=== PATIENT | female | born 1970 | race Caucasian/White ===

== ENCOUNTER 2018-10-18 14:50 | Outpatient (REF) | payer BC, SELFPAY ==
[2018-10-18 19:19] LABS: HCT 42.3 % (36.0-46.0); HGB 14.1 g/dL (12.0-15.5); Mean Corp. HGB Concentration 33.3 g/dL (32.0-36.0); Mean Corpuscular Hemoglobin 29.9 pg (27.0-33.0); Mean Corpuscular Volume 89.8 fL (80-95); Mean Platelet Volume 9.5 fL (8.0-11.0); Platelet Count 279 x1000/uL (130-400); RBC 4.71 m/cumm (4.00-5.20); RBC Distribution Width 13.4 % (11.7-14.6); White Blood Cell Count 4.98 k/cumm (4.4-10.8)
[2018-10-18 19:38] LABS: BUN 17 mg/dL (7-18); CREATININE 0.98 mg/dL (0.55-1.02); Calcium 9.6 mg/dL (8.5-10.1); Chloride 105 mmol/L (98-107); Cholesterol 214 mg/dL (50-200); Glucose 80 mg/dL (70-100); HDL Cholesterol 63 mg/dL (40-60); LDL CHOLESTEROL 128 mg/dL (<100); Sodium 143 mmol/L (136-145); Triglyceride 136 mg/dL (30-150)
[2018-10-18 20:31] LABS: ESR 18 MM/HR (0-20)
[2018-10-19 16:11] LABS: CRP, High Sensitivity 3.49 mg/L
== END 2018-10-18 15:10 ==
LOC: NCHCN 14:50
PROVIDERS: PCP Internal Medicine; Visit Provider Internal Medicine
DX: M06.9 Rheumatoid arthritis, unspecified (principal); F43.21 Adjustment disorder with depressed mood; E66.9 Obesity, unspecified
CPT/HCPCS: 80048; 80061; 83721; 85027; 85652; 86141; 84443

== ENCOUNTER 2019-01-22 10:49 | Outpatient (REF) | payer BC, SELFPAY ==
[2019-01-22 20:26] LABS: ESR 10 MM/HR (0-20)
[2019-01-23 16:34] LABS: CRP, High Sensitivity 4.64 mg/L
[2019-01-24 08:36] LABS: Rheumatoid Factor 31 IU/mL (<12.5)
[2019-01-24 11:08] LABS: Lyme Ab w Rflx to Lyme Confirm Negative
== END 2019-01-22 11:09 ==
LOC: NCHCN 10:49
PROVIDERS: PCP Internal Medicine; Visit Provider Nurse Practitioner Family
DX: M06.9 Rheumatoid arthritis, unspecified (principal)
CPT/HCPCS: 85652; 86141; 86431; 86618

== ENCOUNTER 2019-03-25 10:14 | Outpatient (REF) | payer BC, SELFPAY ==
[2019-03-25 19:16] LABS: Anion Gap 13.9 mmol/L (3-11); BUN 12 mg/dL (7-18); CO2 23.1 mmol/L (21.0-32.0); CREATININE 0.75 mg/dL (0.55-1.02); Calcium 9.2 mg/dL (8.5-10.1); Chloride 106 mmol/L (98-107); Glucose 117 mg/dL (70-100); Potassium 3.9 mmol/L (3.5-5.1); Sodium 143 mmol/L (136-145)
== END 2019-03-25 10:34 ==
LOC: NCHCN 10:14
PROVIDERS: PCP Internal Medicine; Visit Provider Nurse Practitioner Family
DX: E27.49 Other adrenocortical insufficiency (principal); M79.7 Fibromyalgia
CPT/HCPCS: 80048

== ENCOUNTER 2019-03-26 13:26 | Outpatient (REF) | payer BC, SELFPAY ==
[2019-03-26 19:04] LABS: Troponin I < 0.05 ng/mL (0.00-0.06)
== END 2019-03-26 13:46 ==
LOC: NCHCN 13:26
PROVIDERS: PCP Internal Medicine; Visit Provider Nurse Practitioner Family
DX: R07.89 Other chest pain (principal)
CPT/HCPCS: 84484

== ENCOUNTER 2020-06-08 13:58 | Outpatient (REF) | payer BC, SELFPAY ==
[2020-06-08 19:55] LABS: Hemoglobin A1C 5.4 % (<5.7)
[2020-06-08 20:08] LABS: Calculated LDL 143 mg/dL (<100); Cholesterol 222 mg/dL (<200); HDL Cholesterol 63 mg/dL (40-60); Triglyceride 84 mg/dL (<150)
== END 2020-06-08 14:18 ==
LOC: NCHCN 13:58
PROVIDERS: PCP Internal Medicine; Visit Provider Nurse Practitioner Family
DX: E66.9 Obesity, unspecified (principal); Z13.220 Encounter for screening for lipoid disorders; Z13.1 Encounter for screening for diabetes mellitus
CPT/HCPCS: 80061; 83036

== ENCOUNTER 2021-07-16 12:41 | Outpatient (REF) | payer BC, SELFPAY ==
[2021-07-16 20:43] LABS: ALT 45 U/L (14-59); AST 30 U/L (15-37); Albumin 3.9 g/dL (3.4-5.0); Alkaline Phosphatase 114 U/L (46-116); Anion Gap 10.4 mmol/L (3-11); BUN 18 mg/dL (7-18); Bilirubin, Total 0.5 mg/dL (0.2-1.0); CO2 27.6 mmol/L (21.0-32.0); CREATININE 0.8 mg/dL (0.55-1.02); Calcium 8.8 mg/dL (8.5-10.1); Calculated LDL 120 mg/dL (<100); Chloride 105 mmol/L (98-107); Cholesterol 207 mg/dL (<200); Glucose 87 mg/dL (74-106); HDL Cholesterol 74 mg/dL (40-60); Hemoglobin A1C 5.3 % (<5.7); Potassium 3.7 mmol/L (3.5-5.1); Sodium 143 mmol/L (136-145); Total Protein 6.8 g/dL (6.4-8.2); Triglyceride 68 mg/dL (<150)
== END 2021-07-16 12:42 | disposition home or self-care (01) ==
LOC: NCHCN 12:41
PROVIDERS: PCP Internal Medicine; Visit Provider Nurse Practitioner Family
DX: E78.5 Hyperlipidemia, unspecified (principal)
CPT/HCPCS: 80053; 80061; 83036

== ENCOUNTER 2022-07-25 12:00 | Outpatient (REF) | payer BC, SELFPAY | END 2022-07-25 12:01 | disposition home or self-care (01) | LOC: NCHCN 12:00 | PROVIDERS: PCP Internal Medicine; Visit Provider Nurse Practitioner Family | DX: R35.0 Frequency of micturition (principal) | CPT/HCPCS: 87077; 87086; 87186 ==

== ENCOUNTER 2022-08-05 16:30 | Outpatient (REF) | payer BC, SELFPAY ==
[2022-08-08 12:54] LABS: Chlamydia Result Negative (Negative); GC Result Negative (Negative)
== END 2022-08-05 16:31 | disposition home or self-care (01) ==
LOC: NCHCN 16:30
PROVIDERS: PCP Internal Medicine; Visit Provider Physician Assistant
DX: Z11.3 Encounter for screening for infections with a predominantly sexual mode of transmission (principal); R30.0 Dysuria
CPT/HCPCS: 87491; 87591; 87480; 87510; 87660

== ENCOUNTER 2024-05-21 19:51 | Outpatient (REF) | payer MEDICAID, SELFPAY ==
[2024-05-21 22:36] LABS: ALT 90 U/L (14-59); AST 79 U/L (15-37); Albumin 3.7 g/dL (3.4-5.0); Alkaline Phosphatase 117 U/L (46-116); Anion Gap 12.9 mmol/L (3-11); BUN 12 mg/dL (7-18); Bilirubin, Total 0.71 mg/dL (0.2-1.0); CO2 21.1 mmol/L (21.0-32.0); Calcium 9.1 mg/dL (8.5-10.1); Calculated LDL 138 mg/dL (<100); Chloride 104 mmol/L (98-107); Cholesterol 217 mg/dL (<200); Estimated GFR 67.78 (mL/min/1.73m2); Glucose 94 mg/dL (74-106); HDL Cholesterol 52 mg/dL (40-60); Potassium 4.5 mmol/L (3.5-5.1); Sodium 138 mmol/L (136-145); Total Protein 7.6 g/dL (6.4-8.2); Triglyceride 135 mg/dL (<150)
[2024-05-22 19:25] LABS: HIV-1/2 Ag & Ab Screen Negative (Negative)
[2024-05-22 20:46] LABS: Hepatitis C Ab w Rflx HCV PCR Negative (Negative)
== END 2024-05-21 19:52 | disposition home or self-care (01) ==
LOC: NCHCN 19:51
PROVIDERS: PCP Internal Medicine; Visit Provider Nurse Practitioner Family
DX: Z11.59 Encounter for screening for other viral diseases (principal); Z11.4 Encounter for screening for human immunodeficiency virus [HIV]; E66.9 Obesity, unspecified; E78.5 Hyperlipidemia, unspecified
CPT/HCPCS: 80053; 80061; 86803; 87389

== ENCOUNTER 2025-08-18 11:36 | Outpatient (REF) | payer MEDICARE, MEDICAID, SELFPAY ==
[2025-08-18 19:18] LABS: HCT 44.0 % (36.0-46.0); HGB 14.4 g/dL (11.2-15.7); MCH 28.1 pg (27.0-33.0); MCHC 32.7 % (32.0-36.0); MCV 86 fL (80-95); MPV 8.9 fL (8.0-11.0); Platelet Count 354 10^3/uL (130-400); RBC 5.12 10^6/uL (3.93-5.22); RDW 12.3 % (11.7-14.6); RDW-SD 38.6 fL; WBC 6.36 10^3/uL (4.4-10.8)
[2025-08-18 19:39] LABS: ALT 45 U/L (10-49); AST 45 U/L (<34); Albumin 4.4 g/dL (3.2-5.0); Alkaline Phosphatase 108 U/L (46-116); Anion Gap 10.8 mmol/L (3-11); BUN 14 mg/dL (9-23); Bilirubin, Total 0.5 mg/dL (0.2-1.2); CO2 24.2 mmol/L (20.0-31.0); Calcium 9.6 mg/dL (8.3-10.6); Chloride 107 mmol/L (98-107); Glucose 109 mg/dL (74-106); Potassium 4.1 mmol/L (3.5-5.1); Sodium 142 mmol/L (136-145); Total Protein 7.5 g/dL (5.7-8.2)
[2025-08-18 20:06] LABS: TSH (W/Ref FT4) 3.27 uIU/mL (0.55-4.78)
== END 2025-08-18 11:37 | disposition home or self-care (01) ==
LOC: NCHCN 11:36
PROVIDERS: PCP Internal Medicine; Visit Provider Nurse Practitioner Family
DX: K76.0 Fatty (change of) liver, not elsewhere classified (principal); E66.01 Morbid (severe) obesity due to excess calories; E66.813 Obesity, class 3; Z68.41 Body mass index [BMI] 40.0-44.9, adult
CPT/HCPCS: 80053; 85027; 84443